=== PATIENT | female | born 1960 | race African-American/Black ===

== ENCOUNTER 2016-05-28 13:46 | Emergency (ER) | payer OTHER ==
[2016-05-28 13:57] VITALS: BP 125/74; PULSE 80; TEMP 97.6; BMI 28.3
[2016-05-28] MEDS ORDERED: SODIUM CHLORIDE 1,000 ML IV STA (15:03)
[2016-05-28] MEDS ORDERED: HYDROmorphone HCL CARPU-JECT 1 MG/1 ML DISP.SYRIN IVPUSH ONE (15:03)
--- NOTE | 2016-05-28 15:07 | PDOC ---
History of Present Illness <Lydia Sun - Last Filed: 05/28/16 19:51> - History of Present Illness Initial Comments: 05/28/16 15:04 55-year-old female with a past medical history of AODM, bipolar disorder, hypertension, and hyperlipidemia Surgical history-GHANSHYAM/BSO, and 2 Patient is complaining of diffuse abdominal pain for "months" She describes the abdominal pain as diffuse, and is complaining of progressively increasing abdominal distention She admits to nausea and diminished appetite but no vomiting She states the pain is worse after she eats She states that she is moving her bowels every other day but does not see any blood or black tarry stool She states that it does hurt worse to move her bowels She denies any vaginal bleeding or spotting She denies any fevers or chills She denies any dysuria urgency or frequency She denies any flank pain She denies any chest pain or shortness of breath She denies any other complaints at this time, and the remainder of the review of systems is negative <Margaret Morelos - Last Filed: 05/30/16 08:26> - General Chief Complaint: Pain Stated Complaint: ABD PAIN Time Seen by Provider: 05/28/16 14:48 Past History <Lydia Sun - Last Filed: 05/28/16 19:51> - Past Medical History Diabetes: Yes (II) HTN: Yes Hypercholesterolemia: Yes Psychiatric Problems: Yes (Bi-Polar) - Psycho/Social/Smoking Cessation Hx Anxiety: No Suicidal Ideation: No Smoking History: Current every day smoker Have you smoked in the past 12 months: No Number of Cigarettes Smoked Daily: 20 Information on smoking cessation initiated: No Hx Alcohol Use: No Drug/Substance Use Hx: No Substance Use Type: None <Margaret Morelos - Last Filed: 05/30/16 08:26> - Past Medical History Allergies/Adverse Reactions: Allergies Allergy/AdvReac Type Severity Reaction Status Date / Time No Known Allergies Allergy Verified 05/28/16 13:58 Home Medications: Ambulatory Orders Aripiprazole [Abilify -] 0 mg PO DAILY 05/28/16 Clonidine HCl [Clonidine HCl ER] 0 mg PO ASDIR 05/28/16 Hydrochlorothiazide [Hctz -] 0 mg PO DAILY 05/28/16 Metformin HCl [Metformin HCl ER] 500 mg PO BID 05/28/16 Sertraline HCl [Zoloft -] 0 mg PO DAILY 05/28/16 Review of Systems - Review of Systems Able to Perform ROS?: Yes Comments:: 05/28/16 15:06 12 point review of systems is as per history of present illness and otherwise negative <Margaret Morelos - Last Filed: 05/30/16 08:26> *Physical Exam - Vital Signs Last Vital Signs Temp Pulse Resp BP Pulse Ox 97.6 F 80 19 125/74 99 05/28/16 13:54 05/28/16 13:54 05/28/16 13:54 05/28/16 13:54 05/28/16 13:54 <Lydia Sun - Last Filed: 05/28/16 19:51> - Vital Signs Last Vital Signs Temp Pulse Resp BP Pulse Ox 97.6 F 80 19 125/74 99 05/28/16 13:54 05/28/16 13:54 05/28/16 13:54 05/28/16 13:54 05/28/16 13:54 - Physical Exam Comments: 05/28/16 15:06 Physical exam Last Vital Signs Temp Pulse Resp BP Pulse Ox 97.6 F 80 19 125/74 99 05/28/16 13:54 05/28/16 13:54 05/28/16 13:54 05/28/16 13:54 05/28/16 13:54 GENERAL: The patient is awake, alert, and fully oriented, and in no apparent distress. HEAD: Normal with no signs of trauma. EYES: Anicteric, conjunctiva normal ENT: Moist mucous membranes NECK: Normal range of motion, supple LUNGS: Breath sounds equal, clear to auscultation bilaterally. No wheezes, and no crackles. HEART: Regular rate and rhythm, normal S1 and S2 without murmur, rub or gallop. ABDOMEN: Abdomen is distended but soft, with bowel sounds present in all quadrants There is diffuse tenderness in all quadrants to palpation, without guarding or rebound There is no CVA tenderness EXTREMITIES: Normal range of motion, no edema. No clubbing or cyanosis. No cords, erythema, or tenderness. NEUROLOGICAL: Cranial nerves II through XII grossly intact. Normal speech, normal gait. PSYCH: Normal mood, normal affect. SKIN: Warm, Dry, normal turgor, no rashes or lesions noted. <Margaret Morelos - Last Filed: 05/30/16 08:26> ED Treatment Course - LABORATORY CBC & Chemistry Diagram: 05/28/16 15:01 05/28/16 15:00 - ADDITIONAL ORDERS Additional order review: Laboratory Results 05/28/16 05/28/16 05/28/16 15:01 15:00 15:00 INR 0.97 Sodium Potassium Chloride Carbon Dioxide Anion Gap BUN Creatinine Creat Clearance w eGFR Random Glucose Calcium Magnesium 1.8 Total Bilirubin AST ALT Alkaline Phosphatase Creatine Kinase Troponin I B-Natriuretic Peptide 514.97 H Total Protein Albumin Lipase 99 Urine Color Urine Appearance Urine pH Ur Specific [place] Urine Protein Urine Glucose (UA) Urine Ketones Urine Blood Urine Nitrite Urine Bilirubin Urine Urobilinogen Ur Leukocyte Esterase Urine HCG, Qual Negative 05/28/16 05/28/16 15:00 14:41 INR Sodium 139 Potassium 4.0 Chloride 103 Carbon Dioxide 28 Anion Gap 8 BUN 10 Creatinine 0.6 Creat Clearance w eGFR > 60 Random Glucose 290 H Calcium 8.8 Magnesium Total Bilirubin 0.2 AST 8 L ALT 13 Alkaline Phosphatase 159 H Creatine Kinase 78 Troponin I < 0.02 B-Natriuretic Peptide Total Protein 6.4 Albumin 3.5 Lipase Urine Color Yellow Urine Appearance Clear Urine pH 5.0 Ur Specific [place] 1.038 H Urine Protein Negative Urine Glucose (UA) 3+ H Urine Ketones Negative Urine Blood Negative Urine Nitrite Negative Urine Bilirubin Negative Urine Urobilinogen Negative Ur Leukocyte Esterase Negative Urine HCG, Qual 05/28/16 15:01 RBC 4.53 MCV 87.2 MCHC 33.6 RDW 14.1 MPV 7.9 - Medications Given in the ED: ED Medications Discontinued Medications Generic Name Dose Route Start Last Admin Trade Name Freq PRN Reason Stop Dose Admin Hydromorphone HCl 0.5 mg 05/28/16 15:03 05/28/16 15:25 Dilaudid Injection - IVPUSH 05/28/16 15:04 0.5 mg ONCE ONE Administration Sodium Chloride 1,000 mls @ 500 mls/hr 05/28/16 15:03 05/28/16 15:25 Normal Saline - IV 05/28/16 17:02 500 mls/hr ASDIR STA Administration <Lydia Sun - Last Filed: 05/28/16 19:51> - LABORATORY CBC & Chemistry Diagram: 05/28/16 15:01 05/28/16 15:00 - RADIOLOGY Radiology Studies Ordered: Category Date Time Status ABDOMEN & PELVIS CT WITH CONTR [CT] Stat CT Scan 05/28/16 15:01 Ordered CHEST X-RAY PORTABLE* [RAD] Stat Radiology 05/28/16 15:02 Ordered <Margaret Morelos - Last Filed: 05/30/16 08:26> Medical Decision Making - Medical Decision Making 05/28/16 16:20 Chest x-ray-NAD 05/28/16 16:24 EKG Normal sinus rhythm 70, left axis deviation -21 Normal AV and IV conduction time Normal QTC LVH with repolarization abnormality There is no old EKG available for comparison at this time A CT scan of the abdomen and pelvis with oral and IV contrast 05/28/16 17:08 Laboratory Results - last 24 hr 05/28/16 05/28/16 05/28/16 14:41 15:00 15:00 WBC RBC Hgb Hct MCV MCHC RDW Plt Count MPV INR 0.97 Sodium 139 Potassium 4.0 Chloride 103 Carbon Dioxide 28 Anion Gap 8 BUN 10 Creatinine 0.6 Creat Clearance w eGFR > 60 Random Glucose 290 H Calcium 8.8 Magnesium Total Bilirubin 0.2 AST 8 L ALT 13 Alkaline Phosphatase 159 H Creatine Kinase 78 Troponin I < 0.02 B-Natriuretic Peptide Total Protein 6.4 Albumin 3.5 Lipase Urine Color Yellow Urine Appearance Clear Urine pH 5.0 Ur Specific [place] 1.038 H Urine Protein Negative Urine Glucose (UA) 3+ H Urine Ketones Negative Urine Blood Negative Urine Nitrite Negative Urine Bilirubin Negative Urine Urobilinogen Negative Ur Leukocyte Esterase Negative Urine HCG, Qual 05/28/16 05/28/16 05/28/16 15:00 15:01 15:01 WBC 7.9 RBC 4.53 Hgb 13.3 Hct 39.5 MCV 87.2 MCHC 33.6 RDW 14.1 Plt Count 303 MPV 7.9 INR Sodium Potassium Chloride Carbon Dioxide Anion Gap BUN Creatinine Creat Clearance w eGFR Random Glucose Calcium Magnesium 1.8 Total Bilirubin AST ALT Alkaline Phosphatase Creatine Kinase Troponin I B-Natriuretic Peptide 514.97 H Total Protein Albumin Lipase 99 Urine Color Urine Appearance Urine pH Ur Specific [place] Urine Protein Urine Glucose (UA) Urine Ketones Urine Blood Urine Nitrite Urine Bilirubin Urine Urobilinogen Ur Leukocyte Esterase Urine HCG, Qual Negative 05/28/16 17:28 SIGN OUT Case discussed in detail with oncoming Emergency Physician including history, physical exam and ancillary studies. Oncoming Emergency Physician has assumed care for the patient and will complete the evaluation and treatment. Transfer of care to Dr. Sun at 5:[address] scan of the abdomen and pelvis with oral and IV contrast Addendum-Filed: 05/30/16 08:24 Care of this patient was transferred to Dr. Sun at 5:30 PM 05/28/16 The following results were obtained after transfer of care to Dr Sun, and were reviewed by Dr. Sun CT scan of the abdomen and pelvis with oral and IV contrast No free air or free fluid and no signs of bowel obstruction No CT evidence of diverticulitis or colitis No CT evidence of appendicitis diverticulitis or colitis No mass, adenopathy, or ascites No acute changes are noted Chest x-ray- NAD, large heart Patient was discharged by Dr Sun <Margaret Morelos - Last Filed: 05/30/16 08:26> *DC/Admit/Observation/Transfer <Lydia Sun - Last Filed: 05/28/16 19:51> <Margaret Morelos - Last Filed: 05/30/16 08:26> Diagnosis at time of Disposition: Abdominal pain Qualifiers: Abdominal location: generalized Qualified Code(s): R10.84 - Generalized abdominal pain - Discharge Dispostion Disposition: HOME Condition at time of disposition: Stable - Referrals Referrals: STAFF,NOT ON [Primary Care Provider] - - Patient Instructions Printed Discharge Instructions: DI for Abdominal Pain-Adult Additional Instructions: please follow up with your regular physician for GI referral
[2016-05-28] MEDS ORDERED: HYDROmorphone HCL CARPU-JECT 1 MG/1 ML DISP.SYRIN ONE (15:24)
[2016-05-28 15:27] LABS: URINE APPEARANCE CLEAR; URINE BILIRUBIN NEGATIVE (NEGATIVE); URINE BLOOD NEGATIVE (NEGATIVE); URINE COLOR YELLOW; URINE GLUCOSE (UA) 3+ (NEGATIVE); URINE KETONE NEGATIVE (NEGATIVE); URINE LEUK ESTERASE NEGATIVE (NEGATIVE); URINE NITRITE NEGATIVE (NEGATIVE); URINE PROTEIN NEGATIVE (NEGATIVE); URINE UROBILINOGEN NEGATIVE E.U./dl (0.2-1.0)
[2016-05-28 15:27] LABS: MCH 29.3 pg (25.7-33.7); MCHC 33.6 g/dl (32.0-36.0); MEAN CELL VOLUME 87.2 fl (80-96); MEAN PLT VOLUME 7.9 fl (7.5-11.1); PLATELET COUNT 303 K/MM3 (134-434); RDW 14.1 % (11.6-15.6); WHITE BLOOD COUNT 7.9 K/mm3 (4.0-10.0)
[2016-05-28 15:53] LABS: MAGNESIUM 1.8 mg/dL (1.8-2.4)
[2016-05-28 15:53] LABS: INR 0.97 (0.82-1.09); PROTHROMBIN TIME (PATIENT) 10.7 SEC (9.98-11.88)
[2016-05-28 15:54] LABS: ALBUMIN 3.5 g/dl (3.4-5.0); ANION GAP 8 (8-16); BILIRUBIN,TOTAL 0.2 mg/dL (0.2-1.0); CALCIUM 8.8 mg/dL (8.5-10.1); CO2 28 mmol/L (21-32); CREATININE 0.6 mg/dL (0.55-1.02); GLUCOSE,RANDOM 290 mg/dL (74-106); SGOT/AST 8 U/L (15-37); SGPT/ALT 13 U/L (12-78); TOT PROT 6.4 g/dl (6.4-8.2)
[2016-05-28 15:56] LABS: ALK PHOS 159 U/L (45-117); TROPONIN I < 0.02 ng/ml (0.00-0.05)
--- NOTE | 2016-05-28 18:29 | EKG ---
Test Reason : Blood Pressure : / mmHG Vent. Rate : 070 BPM Atrial Rate : 070 BPM P-R Int : 144 ms QRS Dur : 078 ms QT Int : 418 ms P-R-T Axes : 054 -21 106 degrees QTc Int : 451 ms NORMAL SINUS RHYTHM LEFT VENTRICULAR HYPERTROPHY WITH REPOLARIZATION ABNORMALITY ABNORMAL ECG NO PREVIOUS ECGS AVAILABLE Confirmed by GUADALUPE CHEW MD ([id number]) on 05/28/2016 6:29:19 PM Referred By: Confirmed By:GUADALUPE CHEW MD
== END 2016-05-28 20:01 | disposition home or self-care (01) ==
LOC: JER 13:46 → SUPCPDRO 13:46 → JER 20:01
PROC: 3E033NZ Introduction of Analgesics, Hypnotics, Sedatives into Peripheral Vein, Percutaneous Approach (ICD-10-PCS; principal; 2016-05-28)
DX: R10.84 Generalized abdominal pain (principal); I10 Essential (primary) hypertension; E11.9 Type 2 diabetes mellitus without complications; Z79.84 Long term (current) use of oral hypoglycemic drugs; F31.9 Bipolar disorder, unspecified; F17.210 Nicotine dependence, cigarettes, uncomplicated; E78.00 Pure hypercholesterolemia, unspecified
CPT/HCPCS: 36415; 71010-TC; 74177-TC; 80053; 81003; 82550; 83690; 83735; 83880; 84484; 84703; 85027; 85610; 87086; 93005; 93010; 96374; 99283-25

== ENCOUNTER 2018-02-15 20:07 | Observation (INO) | payer OTHER ==
[2018-02-15 20:35] VITALS: BMI 25.7
--- NOTE | 2018-02-15 20:35 | PDOC ---
Rapid Medical Evaluation Time Seen by Provider: 02/15/18 20:29 Medical Evaluation: Allergies Allergy/AdvReac Type Severity Reaction Status Date / Time No Known Allergies Allergy Verified 05/28/16 13:58 02/15/18 20:29 I have performed a brief in person evaluation of this patient. The patient presents with a chief complaints of: MARYCARMEN No BMx3d Pt living in her vehicle. Resides in [place], came here to spend time with her aunt but her aunt is not around Concern about her "sugar" EMS states 323 on finger stick and her HTN (lost HCTZ and lisinopril) hasn't been compliant x7d c/o mid sternal cp w/o sob left sided abd pain "It hurts because I have to go to the toilet" Pertinent physical exam findings: LS CTAB, Cardiac RRR, S1,S2 Abd; Soft, ND, left sided mid abd discomfrot on deep palp EKG done in triage I have ordered the following: cbc, cmp, cardiac profile, cxr, abd flat/uprt, ekg IV established by EMS right forearm The patient will proceed to the ED for further evaluation.
--- NOTE | 2018-02-15 21:01 | PDOC ---
History of Present Illness - General History Source: Patient Exam Limitations: No Limitations - History of Present Illness Initial Comments: 02/15/18 22:48 The patient is a 57-year-old female with past medical history significant for bipolar disorder, HTN, HLD, and DM presents to the emergency department with L. sided abdominal pain and chest pressure. The patient reports shes visiting from [place], was supposed to stay with family, states shes currently homeless and lives in the car. The patient reports she isnt compliant with her medications secondary to financial issues. The patient presents via EMS with L. sided abdominal pain that presented today, thats been persistent. The patient reports an additional concern of chest pressure and no bowel movement for the past 3 days. The patient reports an additional concern of polyuria and polydipsia. The patient states shes been eating anything she could find. Allergies: NKA Social history: Current everyday smoker Surgical history: None reported PCP: Not from [place]. <Earlene Pierre - Last Filed: 02/15/18 23:23> <Heather Bejarano - Last Filed: 02/16/18 19:24> - General Chief Complaint: Pain Stated Complaint: PAIN Time Seen by Provider: 02/15/18 20:29 Past History <Earlene Pierre - Last Filed: 02/15/18 23:23> - Past Medical History COPD: No Diabetes: Yes (IDDM) HTN: Yes Hypercholesterolemia: Yes Psychiatric Problems: Yes (Bi-Polar) - Suicide/Smoking/Psychosocial Hx Smoking History: Current every day smoker Have you smoked in the past 12 months: Yes Number of Cigarettes Smoked Daily: 20 Information on smoking cessation initiated: Yes 'Breaking Loose' booklet given: 02/15/18 Hx Alcohol Use: No Drug/Substance Use Hx: No Substance Use Type: None <Heather Bejarano - Last Filed: 02/16/18 19:24> - Past Medical History Allergies/Adverse Reactions: Allergies Allergy/AdvReac Type Severity Reaction Status Date / Time No Known Allergies Allergy Verified 05/28/16 13:58 Home Medications: Ambulatory Orders Lisinopril/Hydrochlorothiazide [Lisinopril-Hctz 20-12.5 mg Tab] 1 each PO DAILY 02/16/18 Risperidone 0 mg PO DAILY 02/16/18 Sennosides [Senna] 17.2 mg PO DAILY 02/16/18 Simvastatin 0 mg PO DAILY 02/16/18 Review of Systems - Review of Systems Comments:: 02/15/18 22:48 GENERAL/CONSTITUTIONAL: No fever or chills. No weakness. HEAD, EYES, EARS, NOSE AND THROAT: No change in vision. No ear pain or discharge. No sore throat. CARDIOVASCULAR: +chest pressure. No chest pain or shortness of breath. RESPIRATORY: No cough, wheezing, or hemoptysis. GASTROINTESTINAL: +abdominal pain. No nausea, vomiting, diarrhea or constipation. GENITOURINARY: +polyuria and polydipsia. No dysuria, frequency, or change in urination. MUSCULOSKELETAL: No joint or muscle swelling or pain. No neck or back pain. SKIN: No rash NEUROLOGIC: No headache, vertigo, loss of consciousness, or change in strength/ sensation. ENDOCRINE: No increased thirst. No abnormal weight change. HEMATOLOGIC/LYMPHATIC: No anemia, easy bleeding, or history of blood clots. ALLERGIC/IMMUNOLOGIC: No hives or skin allergy. <Earlene Pierre - Last Filed: 02/15/18 23:23> *Physical Exam - Vital Signs Last Vital Signs Temp Pulse Resp BP Pulse Ox 98 F 86 20 159/90 99 02/15/18 20:32 02/15/18 20:32 02/15/18 20:32 02/15/18 20:32 02/15/18 20:32 - Physical Exam Comments: 02/15/18 23:23 GENERAL: afebrile Awake, alert, and fully oriented, in no acute distress HEAD: No signs of trauma EYES: exophthalmic. PERRLA, EOMI, sclera anicteric, conjunctiva clear ENT: Auricles normal inspection, hearing grossly normal, nares patent, oropharynx clear without exudates. Moist mucosa NECK: Normal ROM, supple, no lymphadenopathy, JVD, or masses LUNGS: Breath sounds equal, clear to auscultation bilaterally. No wheezes, and no crackles HEART: Regular rate and rhythm, normal S1 and S2, no murmurs, rubs or gallops ABDOMEN: Soft, nontender, no flank pain, normoactive bowel sounds. No guarding , no rebound. No masses EXTREMITIES: No pitting edema of the legs, dry legs. Normal range of motion, no edema. No clubbing or cyanosis. No cords, erythema, or tenderness NEUROLOGICAL: Cranial nerves II through XII grossly intact. Normal speech. SKIN: Warm, Dry, normal turgor, no rashes or lesions noted. <Earlene Pierre - Last Filed: 02/15/18 23:23> - Vital Signs Last Vital Signs Temp Pulse Resp BP Pulse Ox 98 F 86 20 159/90 99 02/15/18 20:32 02/15/18 20:32 02/15/18 20:32 02/15/18 20:32 02/15/18 20:32 <Heather Bejarano - Last Filed: 02/16/18 19:24> ED Treatment Course - LABORATORY CBC & Chemistry Diagram: 02/15/18 20:53 02/15/18 20:53 - ADDITIONAL ORDERS Additional order review: Laboratory Results 02/15/18 02/15/18 20:53 20:53 Sodium 139 Potassium 3.8 Chloride 105 Carbon Dioxide 26 Anion Gap 7 L BUN 12 Creatinine 0.8 Creat Clearance w eGFR > 60 Random Glucose 368 H* Calcium 8.3 L Total Bilirubin 0.2 AST 9 L ALT 18 Alkaline Phosphatase 125 H Creatine Kinase 99 Troponin I < 0.02 Total Protein 6.4 Albumin 3.5 Urine Color Yellow Urine Appearance Slcloudy Urine pH 5.0 Ur Specific [place] 1.029 Urine Protein Negative Urine Glucose (UA) 3+ H Urine Ketones Negative Urine Blood Negative Urine Nitrite Negative Urine Bilirubin Negative Urine Urobilinogen 2.0 H Ur Leukocyte Esterase 1+ H Urine WBC (Auto) 6 Urine RBC (Auto) 6 Ur Epithelial Cells Few Urine Bacteria Rare Urine Mucus Rare 02/15/18 20:53 RBC 4.30 MCV 87.5 MCHC 35.0 RDW 13.5 MPV 7.8 Neutrophils % 66.9 Lymphocytes % 24.1 Monocytes % 6.8 Eosinophils % 1.2 Basophils % 1.0 <Earlene Pierre - Last Filed: 02/15/18 23:23> - LABORATORY CBC & Chemistry Diagram: 02/16/18 05:35 02/16/18 05:35 <Heather Bejarano - Last Filed: 02/16/18 19:24> Medical Decision Making - Medical Decision Making 02/15/18 23:09 Pt comes with increased blood sugar 02/15/18 23:11 Pt's CXR looks normal; her Abd XR looks like she has stool throughout. 02/15/18 23:17 Pt will be admitted to the telemetry unit, as she has CP that began today. She has DM and HTN. She is out of her meds, and she states that she has not been taking her DM meds, as she has not been eating because she is living out of her car, which is out of gasoline. 02/16/18 00:41 Labs are normal; only glc is elevated. Pt has glc in her urine and she has + urobilinogen. XRs normal. STT nonspecific changes on EKG and LVH with strain pattern <Heather Bejarano - Last Filed: 02/16/18 19:24> *DC/Admit/Observation/Transfer <Earlene Pierre - Last Filed: 02/15/18 23:23> - Discharge Dispostion Decision to Admit order: Yes <Heather Bejarano - Last Filed: 02/16/18 19:24> Diagnosis at time of Disposition: Chest pain, Uncontrolled diabetes mellitus, HTN (hypertension), Homeless - Discharge Dispostion Condition at time of disposition: Guarded
[2018-02-15 21:03] LABS: EOS % 1.2 % (0-4.5); HEMATOCRIT 37.7 % (32.4-45.2); HEMOGLOBIN 13.2 GM/dL (10.7-15.3); LYMPH % 24.1 % (8-40); MCH 30.6 pg (25.7-33.7); MEAN CELL VOLUME 87.5 fl (80-96); MEAN PLT VOLUME 7.8 fl (7.5-11.1); MONO % 6.8 % (3.8-10.2); NEUT % 66.9 % (42.8-82.8); PLATELET COUNT 318 K/MM3 (134-434); RDW 13.5 % (11.6-15.6); WHITE BLOOD COUNT 7.8 K/mm3 (4.0-10.0)
[2018-02-15 21:27] LABS: ALBUMIN 3.5 g/dl (3.4-5.0); ALK PHOS 125 U/L (45-117); ANION GAP 7 MMOL/L (8-16); BILIRUBIN,TOTAL 0.2 mg/dL (0.2-1); BLOOD UREA NITROGEN 12 mg/dL (7-18); CALCIUM 8.3 mg/dL (8.5-10.1); CHLORIDE 105 mmol/L (98-107); CO2 26 mmol/L (21-32); CREATININE 0.8 mg/dL (0.55-1.3); POTASSIUM 3.8 mmol/L (3.5-5.1); SGOT/AST 9 U/L (15-37); SGPT/ALT 18 U/L (13-61); SODIUM 139 mmol/L (136-145); TOT PROT 6.4 g/dl (6.4-8.2)
[2018-02-15 21:30] LABS: GLUCOSE,RANDOM 368 mg/dL (74-106)
[2018-02-15 21:36] LABS: URINE APPEARANCE SLCLOUDY; URINE BILIRUBIN NEGATIVE (<2.0 mg/dL); URINE COLOR YELLOW; URINE GLUCOSE (UA) 3+ (NEGATIVE); URINE KETONE NEGATIVE (NEGATIVE); URINE LEUK ESTERASE 1+ (NEGATIVE); URINE NITRITE NEGATIVE (NEGATIVE); URINE PROTEIN NEGATIVE (NEGATIVE)
[2018-02-15 21:43] LABS: EPI CELLS FEW /HPF (FEW); URINE BACTERIA RARE /hpf (NONE SEEN); URINE MUCUS RARE
[2018-02-15] MEDS ORDERED: ASPIRIN 81 MG CHEWABLE TABLETS PO ONE (22:06)
[2018-02-15] MEDS ORDERED: SODIUM CHLORIDE 0.9% 500 ML INFUS.BAG IV ONE (23:10)
[2018-02-15] MEDS ORDERED: INSULIN REGULAR HUMAN 100 UNITS/ML *VIAL IVPUSH ONE (23:12)
[2018-02-15] MEDS ORDERED: ASPIRIN 81 MG CHEWABLE TABLETS ONE (23:27)
[2018-02-15] MEDS ORDERED: INSULIN REGULAR HUMAN 100 UNITS/ML *VIAL ONE (23:29)
--- NOTE | 2018-02-16 00:05 | PN ---
Teaching Attending Note Name of Resident: Jojo Hyatt ATTENDING PHYSICIAN STATEMENT I saw and evaluated the patient. I reviewed the resident's note and discussed the case with the resident. I agree with the resident's findings and plan as documented. SUBJECTIVE: Patient is a 57 year old woman with PMH of bipolar disorder, Tobacco use, HTN, HLD, and NIDDM who presents with left sided abdominal pain and chest pressure. The patient reports shes visiting from [place], was supposed to stay with family, states shes currently homeless and lives in the car. The patient reports she isnt compliant with her medications secondary to financial issues. The patient presents via EMS with L. sided abdominal pain that presented today, thats been persistent. The patient reports an additional concern of chest pressure and no bowel movement for the past 3 days. The patient reports an additional concern of polyuria and polydipsia. The patient states shes been eating anything she could find. OBJECTIVE: Alert Vital Signs Period Temp Pulse Resp BP Sys/Martinez Pulse Ox Last 24 Hr 98 F 86 20 159/90 99 HEENT: No Jaundice, eye redness or discharge, PERRLA, EOMI. Normocephalic, atraumatic. External ears are normal and hearing is grossly intact. No nasal discharge. Neck: Supple, nontender. No palpable adenopathy or thyromegaly. No JVD Chest: Good effort. Clear to auscultation. Chest wall tenderness. Heart: Regular. No S3, rub or murmur Abdomen: Not distended, soft, nontender and no HSM. No rebound or guarding. Normoactive bowel sounds. Ext: Peripheral pulses intact. No leg edema. Skin: Warm and dry. No petechiae, rash or ecchymosis. Neuro: Alert. Oriented x3. CN 2-12 grossly intact. Sensation grossly intact in all four extremities and DTR are symmetric. Home Medications Medication Instructions Recorded Aripiprazole [Abilify -] 0 mg PO DAILY 05/28/16 Clonidine HCl [Clonidine HCl ER] 0 mg PO ASDIR 05/28/16 Hydrochlorothiazide [Hctz -] 0 mg PO DAILY 05/28/16 Metformin HCl [Metformin HCl ER] 500 mg PO BID 05/28/16 Sertraline HCl [Zoloft -] 0 mg PO DAILY 05/28/16 Abnormal Lab Results 02/15/18 02/15/18 20:53 20:53 Anion Gap 7 L Random Glucose 368 H* Calcium 8.3 L AST 9 L Alkaline Phosphatase 125 H Urine Glucose (UA) 3+ H Urine Urobilinogen 2.0 H Ur Leukocyte Esterase 1+ H ASSESSMENT AND PLAN: 1. Chest pain/Abdominal pain - Chest pain is atypical. Troponin is negative and EKG shows nonspecific T wave inversions. No acute pathology on CXR. Admit to telemetry to rule out ACS and get ECHO. Abdominal xray suggest constipation - treat with miralax bid, senna and liberal oral fluids. Restart home antihypertensive drugs to attain normotension and stress nonpharmacologic measures to control hypertension. Consult executive secretary social welfare to help with help insurance and living situation. 2. Uncontrolled DM - No evidence of acidosis. Check HbAic. Hold the home diabetes drugs and implement sliding scale insulin regimen. Provide comprehensive diabetes care with patient teaching and counseling about the importance of euglycemia, eye care and foot care. 3. DVT prophylaxis - Lovenox 40 mg SQ q 24 hours. 4. Advance directives - Full code
[2018-02-16] MEDS ORDERED: amLODIPine BESYLATE 5 MG TABLET (FP) PO ONE ×2 (00:42→17:15)
[2018-02-16] MEDS ORDERED: amLODIPine BESYLATE 5 MG TABLET (FP) ONE (01:31)
[2018-02-16] MEDS ORDERED: SENNOSIDES 8.6MG TABLET (FP) PO SCH (01:58)
--- NOTE | 2018-02-16 02:07 | HP ---
CHIEF COMPLAINT: L flank pain, chest pressure PCP: HISTORY OF PRESENT ILLNESS: 57 y/o F with PMH bipolar disorder, HTN, HLD, DM, who presents to the ED c/o L sided flank pain as well as chest pressure, for 1 day duration. As per pt, today she suddenly developed sharp, 10/10 pain in her L flank, without radiation. States that she feels as if she has "a mass in her abdomen."Also endorses chest pressure during this time in her mid-sternal region, which is not a/w N/V. Pt is a and has been homeless recently, living out of her car. 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 On exam, she appears comfortable, intermittently talking to self. Has not had a BM in three days, as she has been begging for food without consistent PO intake. Denies ECHEVARRIA, fever, chills, SOB, or changes in urinary function. 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 refuses other information Family History: brother- psych problems, father lung CA. multiple family members with HTN, HLD Allergies No Known Allergies Allergy (Verified 05/28/16 13:58) HOME MEDICATIONS: Home Medications Medication Instructions Recorded Lisinopril/Hydrochlorothiazide 1 each PO DAILY 02/16/18 [Lisinopril-Hctz 20-12.5 mg Tab] Risperidone 0 mg PO DAILY 02/16/18 Sennosides [Senna] 17.2 mg PO DAILY 02/16/18 Simvastatin 0 mg PO DAILY 02/16/18 will need to verify home meds in AM. pt noncompliant w/meds as well, as currently homeless REVIEW OF SYSTEMS CONSTITUTIONAL: Absent: fever, chills, diaphoresis, generalized weakness, malaise, loss of appetite, weight change HEENT: Absent: rhinorrhea, nasal congestion, throat pain, throat swelling, difficulty swallowing, mouth swelling, ear pain, eye pain, visual changes CARDIOVASCULAR: +chest pressure Absent: chest pain, syncope, palpitations, irregular heart rate, lightheadedness , peripheral edema RESPIRATORY: Absent: cough, shortness of breath, dyspnea with exertion, orthopnea, wheezing, stridor, hemoptysis GASTROINTESTINAL: +abdominal pain Absent: abdominal pain, abdominal distension, nausea, vomiting, diarrhea, constipation, melena, hematochezia GENITOURINARY: Absent: dysuria, frequency, urgency, hesitancy, hematuria, flank pain, genital pain MUSCULOSKELETAL: Absent: myalgia, arthralgia, joint swelling, back pain, neck pain SKIN: Absent: rash, itching, pallor HEMATOLOGIC/IMMUNOLOGIC: Absent: easy bleeding, easy bruising, lymphadenopathy, frequent infections ENDOCRINE: Absent: unexplained weight gain, unexplained weight loss, heat intolerance, cold intolerance NEUROLOGIC: Absent: headache, focal weakness or paresthesias, dizziness, unsteady gait, seizure, mental status changes, bladder or bowel incontinence PSYCHIATRIC: Absent: anxiety, depression, suicidal or homicidal ideation, hallucinations. PHYSICAL EXAMINATION Vital Signs - 24 hr 02/15/18 02/16/18 20:32 01:40 Temperature 98 F 97.7 F Pulse Rate 86 Pulse Rate [ 75 Right Radial] Respiratory 20 18 Rate Blood Pressure 159/90 Blood Pressure 152/82 [Right Arm] O2 Sat by Pulse 99 100 Oximetry (%) GENERAL: pleasant. talking to self; awake, alert. in NAD HEAD: Normal with no signs of trauma. EYES: Pupils equal, round and reactive to light, extraocular movements intact, sclera anicteric, conjunctiva clear. EARS, NOSE, THROAT: Ears normal, nares patent, oropharynx clear NECK: Normal range of motion, supple CHEST: +mid-sternum: TTP LUNGS: Breath sounds equal, clear to auscultation bilaterally. No wheezes, and no crackles. HEART: Regular rate and rhythm, normal S1 and S2 without murmur, rub or gallop. ABDOMEN: Soft, nontender, not distended, normoactive bowel sounds, no guarding, no rebound MUSCULOSKELETAL: Normal range of motion at all joints. LOWER EXTREMITIES: 2+ pt pulses, warm, well-perfused. No calf tenderness. No peripheral edema. NEUROLOGICAL: Cranial nerves II-XII intact. Normal speech. Normal gait. PSYCHIATRIC: Cooperative. Good eye contact. SKIN: Warm, dry, normal turgor Laboratory Results - last 24 hr 02/15/18 02/15/18 02/15/18 20:53 20:53 20:53 WBC 7.8 RBC 4.30 Hgb 13.2 Hct 37.7 MCV 87.5 MCH 30.6 MCHC 35.0 RDW 13.5 Plt Count 318 MPV 7.8 Absolute Neuts (auto) 5.2 Neutrophils % 66.9 Lymphocytes % 24.1 Monocytes % 6.8 Eosinophils % 1.2 Basophils % 1.0 Nucleated RBC % 0 Sodium 139 Potassium 3.8 Chloride 105 Carbon Dioxide 26 Anion Gap 7 L BUN 12 Creatinine 0.8 Creat Clearance w eGFR > 60 Random Glucose 368 H* Calcium 8.3 L Total Bilirubin 0.2 AST 9 L ALT 18 Alkaline Phosphatase 125 H Creatine Kinase 99 Troponin I < 0.02 Total Protein 6.4 Albumin 3.5 Urine Color Yellow Urine Appearance Slcloudy Urine pH 5.0 Ur Specific [place] 1.029 Urine Protein Negative Urine Glucose (UA) 3+ H Urine Ketones Negative Urine Blood Negative Urine Nitrite Negative Urine Bilirubin Negative Urine Urobilinogen 2.0 H Ur Leukocyte Esterase 1+ H Urine WBC (Auto) 6 Urine RBC (Auto) 6 Ur Epithelial Cells Few Urine Bacteria Rare Urine Mucus Rare Alcohol, Quantitative ASSESSMENT/PLAN: 57 y/o F with PMH bipolar disorder, HTN, HLD, DM, who presents to the ED c/o L sided flank pain as well as chest pressure, for 1 day duration. #Chest pain/pressure -atypical in nature, possibly 2/2 costochondritis. diffusely TTP. -will follow on telemetry, r/o ACS -troponin (-) x 1, trend -ECHO #Abdominal pain -may be 2/2 constipation - f/u official report AXR -will give senna, miralax BID #uncontrolled DM -without anion gap, hyperglycemia -f/u Hb A1c -ISS ACHS -BGM #social -will likely need SW involvement; pt unable to obtain meds, thus noncompliant -also as homeless, living out of car. may need further intervention -consider psych consult to determine stability #F/E/N tolerating PO intake continue to follow lytes sodium controlled, diabetic diet #PPX DVT: Lovenox 40mg SQ daily #Dispo tele obs Visit type - Emergency Visit Emergency Visit: Yes ED Registration Date: 02/15/18 Care time: The patient presented to the Emergency Department on the above date and was hospitalized for further evaluation of their emergent condition. - New Patient This patient is new to me today: Yes Date on this admission: 02/16/18 - Critical Care Critical Care patient: No
[2018-02-16] MEDS: POLYETHYLENE GLYCOL 3350 119 GM BTL PO SCH ×2 (02:58→09:51)
[2018-02-16] MEDS ORDERED: ENOXAPARIN NA (PORCINE) 40 MG/0.4 ML DISP.SYRIN SQ SCH ×2 (06:00→10:00)
[2018-02-16] MEDS: INSULIN SLIDING SCALE (NOVOLOG) 1 VIAL SQ SCH ×4 (06:39→17:23)
[2018-02-16 07:52] LABS: BASO % 0.4 % (0-2.0); EOS % 1.3 % (0-4.5); HEMATOCRIT 35.4 % (32.4-45.2); HEMOGLOBIN 11.8 GM/dL (10.7-15.3); LYMPH % 36.1 % (8-40); MCHC 33.2 g/dl (32.0-36.0); MEAN CELL VOLUME 87.4 fl (80-96); MONO % 8.2 % (3.8-10.2); PLATELET COUNT 307 K/MM3 (134-434); RBC 4.05 M/mm3 (3.60-5.2); RDW 13.5 % (11.6-15.6); WHITE BLOOD COUNT 7.9 K/mm3 (4.0-10.0)
[2018-02-16] MEDS ORDERED: ACETAMINOPHEN 325 MG TABLET (FP) PO ONE (08:34)
[2018-02-16] MEDS ORDERED: GLYCERIN 1 RECTAL SUPPOSITORY, ADULT RC ONE (08:35)
[2018-02-16 08:39] LABS: ANION GAP 11 MMOL/L (8-16); BLOOD UREA NITROGEN 18 mg/dL (7-18); CALCIUM 8.4 mg/dL (8.5-10.1); CHLORIDE 110 mmol/L (98-107); CO2 23 mmol/L (21-32); CREATININE 0.6 mg/dL (0.55-1.3); GLUCOSE,RANDOM 98 mg/dL (74-106); MAGNESIUM 1.7 mg/dL (1.8-2.4); PHOSPHOROUS 3.8 mg/dL (2.5-4.9); SODIUM 143 mmol/L (136-145)
--- NOTE | 2018-02-16 08:59 | PN ---
Progress Note (short form) - Note Progress Note: Vital Signs Temperature 98.6 F 02/16/18 07:59 Pulse Rate 74 02/16/18 07:59 Respiratory Rate 17 02/16/18 08:41 Blood Pressure 153/94 02/16/18 07:59 O2 Sat by Pulse Oximetry (%) 100 02/16/18 08:41 GENERAL: pleasant. talking to self; awake, alert. in NAD HEAD: Normal with no signs of trauma. EYES: Pupils equal, round and reactive to light, extraocular movements intact, sclera anicteric, conjunctiva clear. EARS, NOSE, THROAT: Ears normal, oropharynx clear NECK: Normal range of motion, supple LUNGS: Breath sounds equal, clear to auscultation bilaterally. No wheezes, and no crackles. HEART: Regular rate and rhythm, normal S1 and S2 without murmur, rub or gallop. ABDOMEN: Soft, nontender, not distended, normoactive bowel sounds, no guarding, no rebound MUSCULOSKELETAL: Normal range of motion at all joints. EXTREMITIES: 2+ pt pulses, warm, well-perfused. No calf tenderness. No peripheral edema. NEUROLOGICAL: Cranial nerves II-XII intact. Normal speech. Normal gait. PSYCHIATRIC: Cooperative. Good eye contact. SKIN: Warm, dry, normal turgor CBCD WBC 7.9 K/mm3 (4.0-10.0) 02/16/18 05:35 RBC 4.05 M/mm3 (3.60-5.2) 02/16/18 05:35 Hgb 11.8 GM/dL (10.7-15.3) 02/16/18 05:35 Hct 35.4 % (32.4-45.2) 02/16/18 05:35 MCV 87.4 fl (80-96) 02/16/18 05:35 MCHC 33.2 g/dl (32.0-36.0) 02/16/18 05:35 RDW 13.5 % (11.6-15.6) 02/16/18 05:35 Plt Count 307 K/MM3 (134-434) 02/16/18 05:35 MPV 8.0 fl (7.5-11.1) 02/16/18 05:35 CMP Sodium 143 mmol/L (136-145) 02/16/18 05:35 Potassium 4.0 mmol/L (3.5-5.1) 02/16/18 05:35 Chloride 110 mmol/L (98-107) H 02/16/18 05:35 Carbon Dioxide 23 mmol/L (21-32) 02/16/18 05:35 Anion Gap 11 MMOL/L (8-16) 02/16/18 05:35 BUN 18 mg/dL (7-18) 02/16/18 05:35 Creatinine 0.6 mg/dL (0.55-1.3) 02/16/18 05:35 Creat Clearance w eGFR > 60 (>60) 02/16/18 05:35 Random Glucose 98 mg/dL (74-106) 02/16/18 05:35 Calcium 8.4 mg/dL (8.5-10.1) L 02/16/18 05:35 Total Bilirubin 0.2 mg/dL (0.2-1) 02/15/18 20:53 AST 9 U/L (15-37) L 02/15/18 20:53 ALT 18 U/L (13-61) 02/15/18 20:53 Alkaline Phosphatase 125 U/L (45-117) H 02/15/18 20:53 Total Protein 6.4 g/dl (6.4-8.2) 02/15/18 20:53 Albumin 3.5 g/dl (3.4-5.0) 02/15/18 20:53 CARDIAC ENZYMES Creatine Kinase 99 IU/L (26-192) 02/15/18 20:53 Troponin I < 0.02 ng/ml (0.00-0.05) 02/16/18 03:30 Current Medications Generic Name Dose Route Start Last Admin Trade Name Freq PRN Reason Stop Dose Admin Enoxaparin Sodium 40 mg 02/16/18 06:00 02/16/18 06:39 Lovenox - SQ 40 mg DAILY [facility] Administration Influenza Virus Vaccine Quadrival 60 mcg 02/16/18 10:00 Flulaval Quad [id number] IM 02/16/18 10:01 .ONCE ONE Insulin Aspart 1 vial 02/16/18 07:00 02/16/18 06:39 Novolog Vial Sliding Scale - SQ Not Given ACHS [facility] Protocol Lisinopril 20 mg 02/16/18 10:00 Prinivil PO DAILY MIC Polyethylene Glycol 17 gm 02/16/18 02:00 02/16/18 02:58 Miralax (For Daily Use) - PO 17 gm BID MIC Administration Senna 1 tab 02/16/18 01:58 02/16/18 02:58 Senna - PO 1 tab HS MIC Administration Home Medications Medication Instructions Recorded Lisinopril/Hydrochlorothiazide 1 each PO DAILY 02/16/18 [Lisinopril-Hctz 20-12.5 mg Tab] Risperidone 0 mg PO DAILY 02/16/18 Sennosides [Senna] 17.2 mg PO DAILY 02/16/18 Simvastatin 0 mg PO DAILY 02/16/18 Urine Test Results Urine Color Yellow 02/15/18 20:53 Urine Appearance Slcloudy 02/15/18 20:53 Urine pH 5.0 (5.0-8.0) 02/15/18 20:53 Ur Specific [place] 1.029 (1.010-1.035) 02/15/18 20:53 Urine Protein Negative (NEGATIVE) 02/15/18 20:53 Urine Glucose (UA) 3+ (NEGATIVE) H 02/15/18 20:53 Urine Ketones Negative (NEGATIVE) 02/15/18 20:53 Urine Blood Negative (NEGATIVE) 02/15/18 20:53 Urine Nitrite Negative (NEGATIVE) 02/15/18 20:53 Urine Bilirubin Negative (<2.0 mg/dL) 02/15/18 20:53 Ur Leukocyte Esterase 1+ (NEGATIVE) H 02/15/18 20:53 Ur Epithelial Cells Few /HPF (FEW) 02/15/18 20:53 Urine Bacteria Rare /hpf (NONE SEEN) 02/15/18 20:53 Urine Mucus Rare 02/15/18 20:53 Laboratory Tests 02/15/18 02/16/18 02/16/18 20:53 00:41 02:10 Hemoglobin A1c % 10.8 H Troponin I < 0.02 Alcohol, Quantitative < 3.0 02/16/18 03:30 Hemoglobin A1c % Troponin I < 0.02 Alcohol, Quantitative A/P: 57 y/o F with PMH bipolar disorder, HTN, HLD, DM, who presents to the ED c/o L sided flank pain as well as chest pressure, for 1 day duration. #Acute chest pain r/o acs 2 sets of troponin is negative. ECHO is pending #Abdominal pain due to constipation on Senna,miralax, and glycerin supp. #T2DM uncontrolled with hemoglobin A1c is 10.8 , ISS ACHS -BGM ,sodium controlled, diabetic diet #social need SW involvement; pt unable to obtain meds, thus noncompliant -also as homeless, living out of car. may need further intervention -consider psych consult to determine stability DVT Px: : Lovenox 40mg SQ daily
--- NOTE | 2018-02-16 09:35 | HOSP ---
Subjective - Review of Symptoms Events since last encounter: Patient is better but continues to complain of having an abdominal pain. Asking for narcotic, stated only one time. Stated that she knows that will make her more constipated. Also stated that she is a recovering narcotic user. Vital Signs Temperature 98.6 F 02/16/18 07:59 Pulse Rate 74 02/16/18 07:59 Respiratory Rate 17 02/16/18 08:41 Blood Pressure 153/94 02/16/18 07:59 O2 Sat by Pulse Oximetry (%) 100 02/16/18 08:41 GENERAL: NAD, lying in bed comfrotably. awake, alert. HEAD: Normal with no signs of trauma. EYES: Pupils equal, round and reactive to light, extraocular movements intact, sclera anicteric, conjunctiva clear. exophthalmos EARS, NOSE, THROAT: Ears normal, oropharynx clear NECK: Normal range of motion, supple LUNGS: Breath sounds equal, clear to auscultation bilaterally. No wheezes, and no crackles. HEART: Regular rate and rhythm, normal S1 and S2 without murmur, rub or gallop. ABDOMEN: Soft, nontender, not distended, normoactive bowel sounds, no guarding, no rebound MUSCULOSKELETAL: Normal range of motion at all joints. EXTREMITIES: 2+ pt pulses, warm, well-perfused. No calf tenderness. No peripheral edema. NEUROLOGICAL: Cranial nerves II-XII intact. Normal speech. gait not observed. PSYCHIATRIC: Cooperative. Good eye contact. SKIN: Warm, dry, normal turgor CBCD WBC 7.9 K/mm3 (4.0-10.0) 02/16/18 05:35 RBC 4.05 M/mm3 (3.60-5.2) 02/16/18 05:35 Hgb 11.8 GM/dL (10.7-15.3) 02/16/18 05:35 Hct 35.4 % (32.4-45.2) 02/16/18 05:35 MCV 87.4 fl (80-96) 02/16/18 05:35 MCHC 33.2 g/dl (32.0-36.0) 02/16/18 05:35 RDW 13.5 % (11.6-15.6) 02/16/18 05:35 Plt Count 307 K/MM3 (134-434) 02/16/18 05:35 MPV 8.0 fl (7.5-11.1) 02/16/18 05:35 CMP Sodium 143 mmol/L (136-145) 02/16/18 05:35 Potassium 4.0 mmol/L (3.5-5.1) 02/16/18 05:35 Chloride 110 mmol/L (98-107) H 02/16/18 05:35 Carbon Dioxide 23 mmol/L (21-32) 02/16/18 05:35 Anion Gap 11 MMOL/L (8-16) 02/16/18 05:35 BUN 18 mg/dL (7-18) 02/16/18 05:35 Creatinine 0.6 mg/dL (0.55-1.3) 02/16/18 05:35 Creat Clearance w eGFR > 60 (>60) 02/16/18 05:35 Random Glucose 98 mg/dL (74-106) 02/16/18 05:35 Calcium 8.4 mg/dL (8.5-10.1) L 02/16/18 05:35 Total Bilirubin 0.2 mg/dL (0.2-1) 02/15/18 20:53 AST 9 U/L (15-37) L 02/15/18 20:53 ALT 18 U/L (13-61) 02/15/18 20:53 Alkaline Phosphatase 125 U/L (45-117) H 02/15/18 20:53 Total Protein 6.4 g/dl (6.4-8.2) 02/15/18 20:53 Albumin 3.5 g/dl (3.4-5.0) 02/15/18 20:53 CARDIAC ENZYMES Creatine Kinase 99 IU/L (26-192) 02/15/18 20:53 Troponin I < 0.02 ng/ml (0.00-0.05) 02/16/18 03:30 Current Medications Generic Name Dose Route Start Last Admin Trade Name Freq PRN Reason Stop Dose Admin Enoxaparin Sodium 40 mg 02/16/18 06:00 02/16/18 06:39 Lovenox - SQ 40 mg DAILY MIC Administration Influenza Virus Vaccine Quadrival 60 mcg 02/16/18 10:00 Flulaval Quad [id number] IM 02/16/18 10:01 .ONCE ONE Insulin Aspart 1 vial 02/16/18 07:00 02/16/18 06:39 Novolog Vial Sliding Scale - SQ Not Given ACHS [facility] Protocol Lisinopril 20 mg 02/16/18 10:00 Prinivil PO DAILY [facility] Polyethylene Glycol 17 gm 02/16/18 02:00 02/16/18 02:58 Miralax (For Daily Use) - PO 17 gm BID MIC Administration Senna 1 tab 02/16/18 01:58 02/16/18 02:58 Senna - PO 1 tab HS MIC Administration Home Medications Medication Instructions Recorded Lisinopril/Hydrochlorothiazide 1 each PO DAILY 02/16/18 [Lisinopril-Hctz 20-12.5 mg Tab] Risperidone 0 mg PO DAILY 02/16/18 Sennosides [Senna] 17.2 mg PO DAILY 02/16/18 Simvastatin 0 mg PO DAILY 02/16/18 Urine Test Results Urine Color Yellow 02/15/18 20:53 Urine Appearance Slcloudy 02/15/18 20:53 Urine pH 5.0 (5.0-8.0) 02/15/18 20:53 Ur Specific [place] 1.029 (1.010-1.035) 02/15/18 20:53 Urine Protein Negative (NEGATIVE) 02/15/18 20:53 Urine Glucose (UA) 3+ (NEGATIVE) H 02/15/18 20:53 Urine Ketones Negative (NEGATIVE) 02/15/18 20:53 Urine Blood Negative (NEGATIVE) 02/15/18 20:53 Urine Nitrite Negative (NEGATIVE) 02/15/18 20:53 Urine Bilirubin Negative (<2.0 mg/dL) 02/15/18 20:53 Ur Leukocyte Esterase 1+ (NEGATIVE) H 02/15/18 20:53 Ur Epithelial Cells Few /HPF (FEW) 02/15/18 20:53 Urine Bacteria Rare /hpf (NONE SEEN) 02/15/18 20:53 Urine Mucus Rare 02/15/18 20:53 Laboratory Tests 02/15/18 02/16/18 02/16/18 20:53 00:41 02:10 Hemoglobin A1c % 10.8 H Troponin I < 0.02 Alcohol, Quantitative < 3.0 02/16/18 03:30 Hemoglobin A1c % Troponin I < 0.02 Alcohol, Quantitative EKG: reviewed, [facility] A/P: 57 y/o F with PMH bipolar disorder, HTN, HLD, DM, who presents to the ED c/o L sided flank pain as well as chest pressure, for 1 day duration. #Acute chest pain r/o acs 2 sets of troponin is negative. ECHO is pending #Abdominal pain due to constipation on Senna,miralax, and glycerin supp. will add water enema against gravity #T2DM uncontrolled with hemoglobin A1c is 10.8 , ISS ACHS -BGM ,sodium controlled, diabetic diet # HTN Uncontrolled added Lisinopril and Norvasc 5mg po daily. #social need SW involvement; pt unable to obtain meds, thus noncompliant -also as homeless, living out of car. may need further intervention -consider psych consult to determine stability DVT Px: : Lovenox 40mg SQ daily Physical Examination Vital Signs: Vital Signs Temperature 98.6 F 02/16/18 07:59 Pulse Rate 74 02/16/18 07:59 Respiratory Rate 17 02/16/18 08:41 Blood Pressure 153/94 02/16/18 07:59 O2 Sat by Pulse Oximetry (%) 100 02/16/18 08:41 Labs: CBC, BMP 02/16/18 05:35 02/16/18 05:35
[2018-02-16] MEDS ORDERED: LISINOPRIL 20 MG TABLET (FP) PO SCH (10:00)
[2018-02-16] MEDS ORDERED: FLU VACCINE QUAD 60 MCG/0.5 ML (MDV 18-19) IM ONE (10:00)
[2018-02-16] MEDS ORDERED: MAGNESIUM SULF 50% (8.12 MEQ/2 ML-1 GM VIAL) IVPB ONE (11:09)
[2018-02-16] MEDS ORDERED: amLODIPine BESYLATE 5 MG TABLET (FP) PO SCH (11:15)
[2018-02-16] MEDS ORDERED: SODIUM CHLORIDE 0.45% 1,000 ML IV SCH (11:15)
--- NOTE | 2018-02-16 11:59 | EKG ---
Test Reason : Blood Pressure : / mmHG Vent. Rate : 074 BPM Atrial Rate : 074 BPM P-R Int : 140 ms QRS Dur : 082 ms QT Int : 396 ms P-R-T Axes : 070 -12 128 degrees QTc Int : 439 ms NORMAL SINUS RHYTHM POSSIBLE LEFT ATRIAL ENLARGEMENT LEFT VENTRICULAR HYPERTROPHY WITH REPOLARIZATION ABNORMALITY ST SEGMENT ELEVATIONS IN SEPTAL LEADS (CONCAVE) LIKELY SECONDARY TO [facility] ABNORMAL ECG WHEN COMPARED WITH ECG OF 28-MAY-2016 15:24, NO SIGNIFICANT CHANGE WAS FOUND Confirmed by DOMINIQUE MALHOTRA MD ([id number]) on 02/16/2018 11:59:04 AM Referred By: Confirmed By:DOMINIQUE MALHOTRA MD
[2018-02-16] MEDS ORDERED: FAMOTIDINE 20 MG/50 ML IVPB 20 MG/50 ML MG IVPB ONE (17:15)
[2018-02-16] MEDS ORDERED: NICOTINE 14 MG/24 HOURS TOPICAL PATCH TD SCH (17:15)
[2018-02-16 18:25] VITALS: BP 174/101; PULSE 83; TEMP 98.7
[2018-02-16] MEDS ORDERED: risperiDONE 1 MG TABLET (FP) PO SCH (22:00)
--- NOTE | 2018-02-17 07:16 | DS ---
Physical Exam: SUBJECTIVE: Patient seen and examined Events noted overnight. Patient left the hospital without signing AMA as per the notes overnight by the night nurse. OBJECTIVE: Vital Signs Temperature 98.7 F 02/16/18 17:00 Pulse Rate 83 02/16/18 17:00 Respiratory Rate 20 02/16/18 20:42 Blood Pressure 174/101 H 02/16/18 17:00 O2 Sat by Pulse Oximetry (%) 100 02/16/18 20:42 Initial Vital Signs Temp Pulse Resp BP Pulse Ox 98 F 86 20 159/90 99 02/15/18 20:32 02/15/18 20:32 02/15/18 20:32 02/15/18 20:32 02/15/18 20:32 PHYSICAL EXAM GENERAL: NAD, lying in bed comfrotably. awake, alert. HEAD: Normal with no signs of trauma. EYES: Pupils equal, round and reactive to light, extraocular movements intact, sclera anicteric, conjunctiva clear. exophthalmos EARS, NOSE, THROAT: Ears normal, oropharynx clear NECK: Normal range of motion, supple LUNGS: Breath sounds equal, clear to auscultation bilaterally. No wheezes, and no crackles. HEART: Regular rate and rhythm, normal S1 and S2 without murmur, rub or gallop. ABDOMEN: Soft, nontender, not distended, normoactive bowel sounds, no guarding, no rebound MUSCULOSKELETAL: Normal range of motion at all joints. EXTREMITIES: 2+ pt pulses, warm, well-perfused. No calf tenderness. No peripheral edema. NEUROLOGICAL: Cranial nerves II-XII intact. Normal speech. gait not observed. PSYCHIATRIC: Cooperative. Good eye contact. SKIN: Warm, dry, normal turgor LABS Laboratory Results - last 24 hr 02/16/18 02/16/18 02/16/18 05:35 05:35 11:57 WBC 7.9 RBC 4.05 Hgb 11.8 Hct 35.4 MCV 87.4 MCH 29.0 MCHC 33.2 RDW 13.5 Plt Count 307 MPV 8.0 Absolute Neuts (auto) 4.3 Neutrophils % 54.0 Lymphocytes % 36.1 D Monocytes % 8.2 Eosinophils % 1.3 Basophils % 0.4 Nucleated RBC % 0 Sodium 143 Potassium 4.0 Chloride 110 H Carbon Dioxide 23 Anion Gap 11 BUN 18 Creatinine 0.6 Creat Clearance w eGFR > 60 POC Glucometer 234 Random Glucose 98 Calcium 8.4 L Phosphorus 3.8 Magnesium 1.7 L EKG: reviewed, [facility] HOSPITAL COURSE: Date of Admission:02/15/18 Left the hospital on : 02/16/18 57 y/o F with PMH bipolar disorder, HTN, HLD, DM, who presents to the ED c/o L sided flank pain as well as chest pressure, for 1 day duration. #Acute chest pain r/o acs 2 sets of troponin is negative. ECHO is pending #Abdominal pain due to constipation on Senna,miralax, and glycerin supp. will add water enema against gravity #T2DM uncontrolled with hemoglobin A1c is 10.8 , ISS ACHS -BGM ,sodium controlled, diabetic diet # HTN Uncontrolled added Lisinopril and Norvasc 5mg po daily. #social need SW involvement; pt unable to obtain meds, thus noncompliant -also as homeless, living out of car. may need further intervention -consider psych consult to determine stability DVT Px: : Lovenox 40mg SQ daily Patient left the hospital as per overnight nurse without signing AMA form as per night nurse note. Minutes to complete discharge: 25 Discharge Summary Reason For Visit: UNCONTROLLED DIABETES MELLITUS,HOMELESS, Condition: Stable - Instructions Disposition: AGAINST MEDICAL ADVICE - Home Medications Comprehensive Discharge Medication List: Ambulatory Orders Lisinopril/Hydrochlorothiazide [Lisinopril-Hctz 20-12.5 mg Tab] 1 each PO DAILY 02/16/18 Risperidone 0 mg PO DAILY 02/16/18 Sennosides [Senna] 17.2 mg PO DAILY 02/16/18 Simvastatin 0 mg PO DAILY 02/16/18 This patient is new to me today: No Emergency Visit: Yes ED Registration Date: 02/15/18 Care time: The patient presented to the Emergency Department on the above date and was hospitalized for further evaluation of their emergent condition. Critical Care patient: No - Discharge Referral Referred to [facility] No
[2018-02-17] MEDS ORDERED: amLODIPine BESYLATE 10 MG TABLET (FP) PO SCH (10:00)
== END 2018-02-16 21:00 | disposition left against medical advice (07) ==
LOC: JER 20:07 → JERBED 23:20 → J4W 02-16 02:24
PROVIDERS: ADMIT Internal Medicine; ATTEND Internal Medicine
PROC: 3E033GC Introduction of Other Therapeutic Substance into Peripheral Vein, Percutaneous Approach (ICD-10-PCS; principal; 2018-02-15)
PROC: 3E0337Z Introduction of Electrolytic and Water Balance Substance into Peripheral Vein, Percutaneous Approach (ICD-10-PCS; 2018-02-15)
PROC: 3E033VG Introduction of Insulin into Peripheral Vein, Percutaneous Approach (ICD-10-PCS; 2018-02-15)
PROC: 3E013GC Introduction of Other Therapeutic Substance into Subcutaneous Tissue, Percutaneous Approach (ICD-10-PCS; 2018-02-15)
PROC: 3E0234Z Introduction of Serum, Toxoid and Vaccine into Muscle, Percutaneous Approach (ICD-10-PCS; 2018-02-15)
DX: R07.89 Other chest pain (principal); R10.9 Unspecified abdominal pain; E11.65 Type 2 diabetes mellitus with hyperglycemia; I10 Essential (primary) hypertension; E78.5 Hyperlipidemia, unspecified; F17.210 Nicotine dependence, cigarettes, uncomplicated; F31.9 Bipolar disorder, unspecified; Z79.4 Long term (current) use of insulin; Z91.14 Patient's other noncompliance with medication regimen; Z23 Encounter for immunization; Z59.0 Homelessness
CPT/HCPCS: 36415; 71046-TC-FY; 74190-TC-FY; 80048; 80053; 80307; 81003; 81015; 82550; 82962; 83036; 83735; 84100; 84484; 85025; 90688; 93005; 93010; 99284-25; G0378